=== PATIENT | female | born 1965 | race Asian ===

== ENCOUNTER 2017-03-16 22:35 | Emergency (ER) | payer OTHER ==
[2017-03-17 00:42] VITALS: BP 126/75
== END 2017-03-17 00:42 | disposition home or self-care (01) ==
LOC: ED 22:35
DX: S52.502A Unspecified fracture of the lower end of left radius, initial encounter for closed fracture (principal); V49.9XXA Car occupant (driver) (passenger) injured in unspecified traffic accident, initial encounter; Y93.89 Activity, other specified; Y92.89 Other specified places as the place of occurrence of the external cause; Y99.8 Other external cause status
CPT/HCPCS: J1200; J2270